=== PATIENT | male | born 1965 | race Caucasian/White ===

== ENCOUNTER 2023-08-12 09:36 | Emergency (ER) | payer BC, SELFPAY ==
--- NOTE | ~2023-08-12 | XR_ITS ---
EXAMINATION: XR chest 2V DATE: 08/12/2023 10:11 INDICATION: Cough and shortness of breath. TECHNIQUE: Frontal and lateral views of the chest were obtained. COMPARISON: None. FINDINGS: There are airspace opacities in left lower lobe, consistent with pneumonia. No pleural effu moira or pneumothorax. The heart size is normal. IMPRESSION: 1. Left lower lobe pneumonia. Reviewed, dictated and finalized at location A.
[2023-08-12 09:44] VITALS: BP 145/76; PULSE 93; RESP 20; TEMP 37.2; O2SAT 97
--- NOTE | 2023-08-12 09:49 | ED.URI ---
HPI - URI/Sore Throat General Chief Complaint: Upper Respiratory Infection Stated Complaint: tight chest/chills/fever Time Seen by Provider: 08/12/23 09:49 Source: patient Mode of arrival: ambulatory Limitations: no limitations History of Present Illness HPI Narrative: 57-year-old male presents with complaint of cough, chest congestion, fatigue. Symptoms for 3-4 days. Reports chills, low-grade fever for 2 days. Patient reports history of pneumonia, COVID pneumonia. Reports mild shortness of breath with exertion. Concerned he may have COVID again. All systems reviewed and negative except as noted above. Related Data Home Medications Medication Instructions Recorded Confirmed olmesartan 40 mg tablet mg 08/12/23 Allergies Allergy/AdvReac Type Severity Reaction Status Date / Time No Known Drug Allergies Allergy Verified 12/17/11 10:40 Review of Systems Review of Systems: CONSTITUTIONAL: Denies fever, chills, or sweats. EYES: Denies visual changes, redness, or discharge. ENT: Denies rhinorrhea, congestion, sore throat, or otalgia. CARDIOVASCULAR: Denies chest pain, palpitations, or edema. RESPIRATORY: Reports cough, chest congestion, dyspnea with exertion. GASTROINTESTINAL: Denies abdominal pain, nausea, vomiting, or diarrhea. GENITOURINARY: Denies dysuria or hematuria. SKIN: Denies rash or itching. MUSCULOSKELETAL: Denies back pain, joint pain, or myalgia. NEUROLOGIC: Denies headache, numbness, or weakness. PSYCHIATRIC: Denies anxiety or depression. All other systems reviewed are negative, except as documented in HPI. PMFSH Comments At time of signature, agree with nursing past medical, surgical, social and family history. There is no relevant family history pertinent to the presenting complaint. Exam Narrative: GENERAL: This is a well-nourished, well-developed patient, in no apparent distress. HEAD: normocephalic, atraumatic. EYES: PERRL. Sclera clear/white. Vision is grossly intact. EARS: External ears normal, auditory canals clear and without drainage, TMs normal without perforation. Hearing grossly intact. NOSE: External nose normal with no obvious nasal discharge, nares without redness, no rhinorrhea. THROAT: Mucous membranes moist, posterior pharynx clear. NECK: Neck supple, non-tender without lymphadenopathy, masses or thyromegaly. CARDIOVASCULAR: Regular rate and rhythm without murmurs, gallops, or rubs. RESPIRATORY: rhonchi left lower lobe. Breath sounds equal bilaterally. No wheezes, rales. SKIN: warm, Dry, intact with no suspicious lesions or rash, good texture and turgor. NEURO: awake, alert, and oriented to person, place and time. There were no obvious focal neurologic abnormalities. EXTREMITIES: No joint tenderness, effusion, or edema noted. Course Course Level of Care: Express Care Visit Vital Signs Vital signs: Vital Signs Temperature 37.2 C 08/12/23 09:44 Pulse Rate 93 08/12/23 09:44 Respiratory Rate 20 08/12/23 09:44 Blood Pressure 145/76 H 08/12/23 09:44 Pulse Oximetry 97 08/12/23 09:44 Oxygen Delivery Room Air 08/12/23 09:44 Temperature 37.2 C 08/12/23 09:44 Pulse Rate 93 08/12/23 09:44 Respiratory Rate 20 08/12/23 09:44 Blood Pressure 145/76 H 08/12/23 09:44 Pulse Oximetry 97 08/12/23 09:44 Oxygen Delivery Room Air 08/12/23 09:44 Reviewed MDM - URI/Sore Throat MDM Narrative Medical decision making narrative: discussed chest x-ray results with patient. Pneumonia left lower lobe. Patient nontoxic. No respiratory distress. Will treat with antibiotic outpatient. Recommend follow-up with primary care physician in 1 week. Patient is aware of diagnosis, understands and agrees to treatment plan. Anticipatory guidance given. Patient agrees to follow-up as directed and is aware of reasons to seek care at the emergency department. Portions of this record may have been created with voice recognition software Differ
== END 2023-08-12 10:29 | disposition home or self-care (01) ==
PROVIDERS: Emergency Provider Nurse Practitioner Family; PCP Internal Medicine
DX: J18.1 Lobar pneumonia, unspecified organism (principal); Z20.822 Contact with and (suspected) exposure to COVID-19; I10 Essential (primary) hypertension
CPT/HCPCS: 71046; 87426; 87804; 99213; G0463